=== PATIENT | female | born 1960 | race Caucasian/White ===

== ENCOUNTER 2019-05-25 07:20 | Emergency (ER) | payer BC ==
[2019-05-25 07:32] VITALS: BP 137/59
[2019-05-25 07:53] LABS: Influenza A Molecular NEGATIVE (Negative); Influenza B Molecular NEGATIVE (Negative)
--- NOTE | 2019-05-25 08:01 | UC ---
FLU HPI - HPI Summary HPI Summary: Patient presents to urgent care reporting progressive headache congestion cough for the last 3 days. Patient states cough is productive with yellow to green sputum. Patient does have a history of asthma and uses duo nebs as needed. Patient's been using them 3 times a day with good effect. Patient denies nausea or vomiting. Patient does report bodyaches. Patient's been taking ibuprofen around the clock with a measured temperature of 100 while and ibuprofen. 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 Patient also states her granddaughter has C and she's been caring for her. Patient last prednisone was approximately 6 months ago. Patient has been hospitalized for her asthma but none in the recent years. Intubated for asthma. Patient states she is not . Patient's medications as noted in the EMR by triage is reviewed this visit. Patient to get the flu shot this year. - History of Current Complaint Chief Complaint: UCGeneralIllness Stated Complaint: COUGH/BODY ACHES Time Seen by Provider: 05/25/19 08:00 Hx Obtained From: Patient Hx Last Menstrual Period: 3 wks Onset/Duration: Gradual Onset Severity Currently: Mild Severity Initially: Mild Pain Intensity: 0 Pain Scale Used: 0-10 Numeric - Allergy/Home Medications Allergies/Adverse Reactions: Allergies Allergy/AdvReac Type Severity Reaction Status Date / Time cefazolin Allergy Hives Verified 05/25/19 08:17 sulfamethoxazole Allergy Hives Verified 05/25/19 08:17 [From Bactrim] trimethoprim [From Bactrim] Allergy Hives Verified 05/25/19 08:17 Home Medications: Home Medications Albuterol/Ipratropium NEB.ADELSO* [Duoneb (Albuterol 2.5 MG/Ipratropium 0.5 MG)] 1 neb INH Q6H PRN 05/25/19 [History Confirmed 05/25/19] Cetirizine* [ZyrTEC 10 MG TAB*] 10 mg PO DAILY 05/25/19 [History Confirmed 05/25] Montelukast Sodium TAB* [Singulair TAB*] 10 mg PO DAILY 05/25/19 [History Confirmed 05/25/19] PMH/Surg Hx/FS Hx/Imm Hx Previously Healthy: Yes Respiratory History: Asthma - Surgical History Surgical History: Yes Surgery Procedure, Year, and Place: tubal, venous ligation on b/l legs, thyroidectomy, appy - Family History Known Family History: Positive: Non-Contributory - Social History Occupation: Employed Full-time Lives: With Family Alcohol Use: None Substance Use Type: None Smoking Status (MU): Never Smoked Tobacco Review of Systems All Other Systems Reviewed And Are Negative: Yes Constitutional: Positive: Fever, Fatigue ENT: Positive: Nasal Discharge, Sinus Congestion, Sinus Pain/Tenderness Respiratory: Positive: Cough Cardiovascular: Positive: Negative Gastrointestinal: Positive: Negative Genitourinary: Positive: Negative Physical Exam - Summary Physical Exam Summary: Vital Signs Reviewed: Yes A+Ox3, raspy voice, congested, cough Eyes: Conjunctiva Clear, NEIL. EOM intact and full ENT: Hearing grossly normal, fluid right ear, mmoist, uvula midline, no exudate , no erythema Neck: Positive: Supple Respiratory: Positive: No respiratory distress, No accessory muscle use + CTA throughout no w/r Cardiovascular: RRR nl s1, s2 no m/r CBT <2 sec abd soft + BS nt/nd no guarding, no distension Musculoskeletal Exam: MEADOWS x 4 without difficulty Strength Intact, ROM Intact Neurological: Positive: Alert, + sensation throughout Psychological: Positive: Normal Response To examiner Skin: Positive: no rash, no ecchymosis Triage Information Reviewed: Yes Vital Signs: Initial Vital Signs Temp 97.9 F 05/25/19 07:27 Pulse 98 05/25/19 07:27 Resp 16 05/25/19 07:27 BP 137/59 05/25/19 07:27 Pulse Ox 100 05/25/19 07:27 Diagnostics - Radiology No standard instances Radiology Interpretation Completed By: Radiologist - Patient Name: WADE GUAJARDO Medical Record#: [id number] Ordering Physician: Nesha Vasquez MD Acct.#: [id number] : Age: 58 Sex: F Location: [facility] Exam Date: 05/25/19818 ADM Status: REG ER Order Information: CHEST PA & LAT 2 VWS Accession Number: [id number] CPT: 02514 INDICATION: Cough and congestion. COMPARISON: There are no relevant prior studies available for comparison. TECHNIQUE: Dual-energy PA and lateral views of the chest were obtained. FINDINGS: The heart is normal in size. There is prominence of the right hilum possibly indicating right hilar lymphadenopathy or mass. The lungs are clear. No pleural effusion is seen. The results of this exam were called to the referring clinician. IMPRESSION: 1. PROMINENCE OF THE RIGHT HILUM POSSIBLY INDICATING A MASS OR RIGHT HILAR LYMPHADENOPATHY. RECOMMEND A CT OF THE CHEST WITH CONTRAST FOR FURTHER EVALUATION. 2. NO EVIDENCE FOR ACUTE FINDING. <Electronically signed by Walter Perez MD in OV > 05/25/19845 Dictated By: Walter Perez MD Dictated Date/Time: 05/25/19841 Transcribed Date/Time: 05/25/19841 Copy to: CC:Pierce MARI; Nesha Vasquez MD Imaging - [facility] Imaging - [facility] [address] [address] ph [phone] ph ([phone] ph ) This report is only to be considered final once signed by the Provider(s) as displayed in the "<Electronically Signed by >" field (s). Absence of a signature indicates the report is in a draft status and still needs to be finalized. In the event this document was created by someone other than the signing Provider, the individual initiating the document will be listed in the "Entered by:" or "Dictated by:" garcia. 1 of 1 Re-Evaluation - Re-Evaluation First Eval Comment: Reviewed RSV and flu were negative. Review chest x-ray. Patient will need to have a follow-up CT with PCP. We'll write a prescription for prednisone. Patient has plenty of DuoNeb. Work note given. We'll send a prescription for any beds. Patient is not improved in the next 1-2 days posterior. Diflucan prophylaxis given as needed. Patient comfortable and agreed with plan. Return precautions discussed. Flu Course/Dx - Course Course Of Treatment: Patient with a history of asthma. Patient states the last 3 days she's had progressive congestion and cough. Wheeze. Patient states she also has some postnasal drip. Patient's been using her albuterol with improvement. 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 Additionally patient's granddaughter has RSV. On exam patient does have a coarse cough. Few scattered respiratory wheezes. Patient appears tired but nontoxic. We'll check flu, RSV, chest x-ray. Patient denies offer for dual neb here. We'll reassess. - Differential Dx/Diagnosis Provider Diagnosis: Viral respiratory illness, Asthma Discharge ED - Sign-Out/Discharge Documenting (check all that apply): Patient Departure All imaging exams completed and their final reports reviewed: Yes - Discharge Plan Condition: Stable Disposition: HOME Prescriptions: Amoxicillin/Clavulanate TAB* [Augmentin TAB 875*] 875 mg PO BID #20 tab Fluconazole 150 MG TAB* [Diflucan 150 MG TAB*] 150 mg PO ONCE #1 tablet predniSONE 50 mg TAB [Deltasone 50 mg TAB] 50 mg PO DAILY #5 tab Patient Education Materials: Asthma (ED), Viral Syndrome (ED) Forms: *Gen. Provider Communication, *Work Release Referrals: Pierce Hines PA [Primary Care Provider] - Additional Instructions: - Take prednisone daily as prescribed -Stay well hydrated. Drink plenty of non-alcoholic, non-caffinated beverages. - Alternate ibuprofen (Advil, Motrin) 600mg and Tylenol every 3 hours for pain or fever. Take with food. Do NOT take for more than 4-5 days. - These infections are spread by secretions - do NOT share eating or drinking utensils - clean items you share with other people such as cell phones, computer mouse, TV remote, computer tablets,etc. Once you start to feel better, change your toothbrush and your pillowcase. - get plenty of restful sleep - humidify the air in the room where you sleep - boil water, run a hot steam shower, vaporizer, cups of water by heat register - okay to take over the counter decongestant and cough medication - Use your nebulizer every 4 hours today and tomorrow, then every 4 hours as needed = You have been given a prescription for Augmentin - okay to start this medication if your symptoms persist or worsen - You have been given a script for diflucan - okay to use if you develop a yeast infection related to antibiotics. - contact your doctor or return with questions or concerns As discussed, your chest radiograph noted fullness in your hilum area of your chest - a follow-up CT scan is recommended. Discuss this with your primary doctor - Billing Disposition and Condition Condition: STABLE Disposition: Home
== END 2019-05-25 09:14 | disposition home or self-care (01) ==
LOC: UCCORT 07:20
DX: B34.9 Viral infection, unspecified (principal); J45.909 Unspecified asthma, uncomplicated; R09.82 Postnasal drip; R09.81 Nasal congestion; Z88.1 Allergy status to other antibiotic agents; Z88.2 Allergy status to sulfonamides; Z79.899 Other long term (current) drug therapy
CPT/HCPCS: 71046; 99212; G0463